=== PATIENT | male | born 1940 | race Native Hawaiian/Other Pacific Islander ===

== ENCOUNTER 2017-03-02 15:45 | Outpatient (CLI) | payer OTHER | END 2017-03-02 19:23 | disposition home or self-care (01) | LOC: RAD 15:45 | DX: J40 Bronchitis, not specified as acute or chronic (principal) ==

== ENCOUNTER 2018-03-07 00:54 | Emergency (ER) | payer MEDICARE ==
[~2018-03-07] VITALS: Ht 177.8 cm; Wt 70.3 kg
[2018-03-07 02:20] VITALS: BP 152/60; TEMP 98
== END 2018-03-07 02:24 | disposition home or self-care (01) ==
LOC: ED 00:54
DX: R10.13 Epigastric pain (principal); R10.11 Right upper quadrant pain; R11.2 Nausea with vomiting, unspecified
CPT/HCPCS: 99282

== ENCOUNTER 2019-01-17 03:58 | Emergency (ER) | payer OTHER ==
[~2019-01-17] VITALS: Ht 177.8 cm; Wt 68.0 kg
[2019-01-17 04:53] LABS: PLATELET COUNT 182 K/uL (142-355)
[2019-01-17 05:04] LABS: POTASSIUM 4.3 mmol/L (3.6-5.2); SODIUM 140 mmol/L (136-145)
[2019-01-17 05:26] LABS: PARTIAL THROMBOPLASTIN TIME 23.1 SECONDS (24.5-33.6)
[2019-01-17 06:11] VITALS: BP 153/57; TEMP 97.3
== END 2019-01-17 06:13 | disposition home or self-care (01) ==
LOC: ED 03:58
PROVIDERS: Hospitalist
DX: K29.70 Gastritis, unspecified, without bleeding (principal); R11.2 Nausea with vomiting, unspecified; K80.20 Calculus of gallbladder without cholecystitis without obstruction; R00.1 Bradycardia, unspecified
CPT/HCPCS: 36415; 80053; 81000; 82150; 82550; 83690; 84484; 85027; 85610; 85730; 93005; 96374; 99284; J2405

== ENCOUNTER 2019-03-07 07:13 | Outpatient (CLI) | payer OTHER ==
[2019-03-07 07:47] LABS: PLATELET COUNT 188 K/uL (142-355)
== END 2019-03-07 22:52 | disposition home or self-care (01) ==
LOC: LAB 07:13
PROVIDERS: Internal Medicine
DX: Z00.00 Encounter for general adult medical examination without abnormal findings (principal); Z12.5 Encounter for screening for malignant neoplasm of prostate; N40.0 Benign prostatic hyperplasia without lower urinary tract symptoms; Z79.899 Other long term (current) drug therapy
CPT/HCPCS: 36415; 80053; 80061; 81000; 84153; 84439; 84443; 85027

== ENCOUNTER 2019-03-16 06:14 | Emergency (ER) | payer OTHER ==
[~2019-03-16] VITALS: Ht 177.8 cm; Wt 70.3 kg
[2019-03-16 06:28] LABS: PLATELET COUNT 192 K/uL (142-355)
[2019-03-16 06:40] LABS: POTASSIUM 3.9 mmol/L (3.6-5.2); SODIUM 141 mmol/L (136-145)
[2019-03-16 07:52] LABS: PARTIAL THROMBOPLASTIN TIME 25.2 SECONDS (24.5-33.6)
[2019-03-16 08:00] VITALS: TEMP 98
[2019-03-16 08:30] VITALS: BP 109/61
== END 2019-03-16 08:40 | disposition short-term general hospital (02) ==
LOC: ED 06:14
PROVIDERS: Emergency Medicine
DX: G45.8 Other transient cerebral ischemic attacks and related syndromes (principal); S06.5X0A Traumatic subdural hemorrhage without loss of consciousness, initial encounter; W19.XXXA Unspecified fall, initial encounter; Y93.89 Activity, other specified; Y92.89 Other specified places as the place of occurrence of the external cause
CPT/HCPCS: 80053; 83036; 83735; 84484; 85027; 85610; 85730; 93005; 99285

== ENCOUNTER → 2019-03-16 | Outpatient (CLI) | payer OTHER | LOC: AMB 08:51 | DX: S06.5X0A Traumatic subdural hemorrhage without loss of consciousness, initial encounter (principal); G81.94 Hemiplegia, unspecified affecting left nondominant side; R53.1 Weakness | CPT/HCPCS: A0425; A0427 ==

== ENCOUNTER 2020-01-30 15:22 | Outpatient (CLI) | payer OTHER | END 2020-01-30 19:12 | disposition home or self-care (01) | LOC: US 15:22 | DX: D49.59 Neoplasm of unspecified behavior of other genitourinary organ (principal) ==

== ENCOUNTER 2020-03-23 16:19 | Emergency (ER) | payer OTHER ==
[~2020-03-23] VITALS: Ht 177.8 cm; Wt 70.3 kg
[2020-03-23 23:20] LABS: PLATELET COUNT 163 K/uL (142-355)
[2020-03-23 23:25] LABS: POTASSIUM 3.5 mmol/L (3.6-5.2)
[2020-03-24 01:00] VITALS: BP 137/58; TEMP 98.9
== END 2020-03-24 01:00 | disposition home or self-care (01) ==
LOC: ED 16:19
PROVIDERS: Family Medicine
DX: U07.1 COVID-19 (principal); R05 Cough
CPT/HCPCS: 80053; 85027; 87502; 87635; 87651; 99283; U0003

== ENCOUNTER 2021-03-25 11:04 | Outpatient (CLI) | payer OTHER | END 2021-03-25 18:52 | disposition home or self-care (01) | LOC: RAD 11:04 | PROVIDERS: ATTEND Internal Medicine | DX: J44.1 Chronic obstructive pulmonary disease with (acute) exacerbation (principal) ==

== ENCOUNTER 2021-05-21 22:32 | Emergency (ER) | payer OTHER ==
[~2021-05-21] VITALS: Ht 177.8 cm; Wt 68.0 kg
[2021-05-21 23:05] VITALS: BP 102/83; TEMP 98.1
== END 2021-05-21 23:10 | disposition home or self-care (01) ==
LOC: ED 22:32
DX: L98.8 Other specified disorders of the skin and subcutaneous tissue (principal)
CPT/HCPCS: 99281